=== PATIENT | male | born 1970 ===

== ENCOUNTER → 2022-09-28 12:46 | Outpatient (REF) | payer BC, SELFPAY ==
--- NOTE | 2022-09-28 12:55 | CA_ITS ---
Transthoracic Echocardiogram Patient (Last, First, Middle): Osiel Hansen, Gender: Male Date of : 1970 Age: 52 Procedure Date: 09/28/2022 Procedure Type: Transthoracic Echocardiogram Location: [place] Height: 160.02 cm Weight: 78.02 kg BSA: 1.81 m2 Heart Rate: 46 bpm BP: 115 / 70 mmHg Information Systems Specialist: SAMSON Referring MD: Tiago Gonzalez MD Symptoms: CARDIOMYOPATHY Study Quality: Fair ECG Rhythm: Bradycardia Conclusions: - The left ventricular systolic function is normal. The calculated ejection fraction is 55% by biplane method. - No obvious valvular pathology seen on this study. Findings Left Ventricle Normal left ventricular cavity size. There is mildly increased left ventricular wall thickness. The left ventricular systolic function is normal. The calculated ejection fraction is 55% by biplane method. There is no evidence of regional wall motion abnormalities. Diastolic function is normal for age. LV peak GLS -18.1%. Right Ventricle Normal right ventricular cavity size and systolic function. Atria Both atria are normal in size. Aortic Valve There is a normal trileaflet aortic valve. There is no aortic valve stenosis. There is no aortic valve regurgitation. Mitral Valve The mitral valve appears normal. There is trace mitral valve regurgitation. There is no mitral valve stenosis. Pulmonic Valve The pulmonic valve is likely normal. Tricuspid Valve There is trace tricuspid valve regurgitation. There is no evidence of pulmonary hypertension. Great Vessels The asc aorta is normal in size. Venous The inferior vena cava is normal in size and collapses greater than 50% with inspiration. Pericardium/Pleural There is no evidence of pericardial effusion. Prior Study Comparison No prior study available for comparison. Recommendations, Care & Conclusions No obvious valvular pathology seen on this study. Measurements 2D Linear Measurements IVSd: 1.19 0.6-0.9/0.6-1.0 cm LVIDd: 4.17 3.9-5.3/4.2-5.9 cm LVIDd Index: 2.30 2.4-3.2/2.2-3.1 cm/m2 LVIDs: 2.83 2.0-3.6 cm LVPWd: 1.06 0.7-1.1 cm LA Diam: 3.50 2.7-3.8/3.0-4.0 cm LAIDs Index: 1.93 1.5-2.3 cm/m2 LV Mass: 199.78 67-162/88-224 g LV Mass Index: 110.38 43-95/49-115 g/m2 LVOT Diam: 2.00 3.0+(-)1.3 cm 2D Systolic Function EF 4C: 51.20 >55% EF 2C: 58.50 >55% EF BiP: 54.70 >55% Mitral Valve MV Pk E: 0.73 MV PK A: 0.58 MV Decel Time: 271.00 E/A: 1.30 E'Lateral: 10.80 E'Medial: 9.57 E/E' Med: 7.60 E/E' Lat: 6.70 PHT: 79.00 MVA PHT: 2.78 Decel Ralls: 2.69 Aortic Valve AoV Pk Anthony: 1.34 AoV Mn Anthony: 0.95 AoV VTI: 0.32 AoV Pk Grad: 7.00 Aov Mn Grad: 4.00 MARLENA Cont.VTI: 2.06 LVOT LVOT Pk Anthony: 0.88 LVOT Mn Anthony: 0.66 LVOT VTI: 0.21 LVOT Pk Grad: 3.00 LVOT Mn Grad: 2.00 LVOT Diam: 2.00 LVOT Area: 3.14 Diastolic Function MV Pk E: 0.73 MV Pk A: 0.58 E/A: 1.30 E'Medial: 9.57 E/E' Med: 7.60 E' Laterial: 10.80 E/E' Lat: 6.70 Right Ventricle TAPSE (mm): 21.90 TVS' Anthony: 11.10 Tricuspid Valve RA Press: 3.00 Great Vessels Aorta Sinus of Valsalva: 3.40 2.0-3.5 cm Ao Asc: 3.50 2.1-3.4 cm Pulmonary Valve PV Pk Anthony: 0.99 Peak PV Grad: 4.00 Updated in Other Vendor System with Status of Final Eimgdio Hall MD electronically signed on 09/29/2022 10:54:04 AM with status of Final
== END ==
LOC: HO.CARD 12:46
PROVIDERS: PCP Family Medicine; Visit Provider Internal Medicine Cardiovascular Disease
DX: I42.8 Other cardiomyopathies (principal)
CPT/HCPCS: 93306; 93356